=== PATIENT | male | born 1965 | race Caucasian/White ===

== ENCOUNTER 2016-09-17 15:15 | Emergency (ER) | payer MEDICAID, MEDICARE, OTHER ==
[~2016-09-17] VITALS: Ht 185.4 cm; Wt 70.0 kg
[~2016-09-17 15:15] MED LIST: CLOP75 PO; ISOS30TA; LANTUS INSULIN; LISI-618 PO; LITH8SOL; NOVE; QUET200T PO; SIMV5TAB6
[2016-09-17] MEDS ORDERED: ASPIRIN 81 MG CHEWABLE TABLET PO ONE (15:30)
[2016-09-17] MEDS ORDERED: NITROGLYCERIN 0.4 MG SUBLINGUAL TABLET #25 SL ONE (15:45)
[2016-09-17 16:07] LABS: BASOPHILS % (AUTO) 0.1 % (0.0-2.0); EOSINOPHILS % (AUTO) 2.9 % (1.0-6.0); LYMPHOCYTES # (AUTO) 1.5 K/uL (1.0-4.8); LYMPHOCYTES % (AUTO) 17.6 % (22.0-44.0); MEAN CORPUSCULAR HEMOGLOBIN 29.7 pg (26.0-34.0); MEAN CORPUSCULAR HGB CONC 33.3 G/dL (31.0-37.0); MEAN CORPUSCULAR VOLUME 89 fL (80-100); MONOCYTES # (AUTO) 0.3 K/uL (0.1-1.0); MONOCYTES % (AUTO) 4.1 % (2.0-9.0); NEUTROPHILS # (AUTO) 6.2 K/uL (1.8-7.7); NEUTROPHILS % (AUTO) 75.3 % (40.0-70.0); PLATELET COUNT (AUTO) 183 K/uL (150-450); RED BLOOD CELL COUNT(AUTO) 4.04 MIL/uL (4.50-5.90); RED CELL DISTRIBUTION WIDTH 14.4 % (11.5-14.5); WHITE BLOOD COUNT (AUTO) 8.3 K/uL (4.5-11.0)
[2016-09-17] MEDS ORDERED: HEPARIN SODIUM 25000 UNITS/D5W 250 ML IV PRN (16:13)
[2016-09-17] MEDS ORDERED: HEPARIN SODIUM,PORCINE 5,000 UNITS/ML VIAL IVP ONE (16:15)
[2016-09-17] MEDS ORDERED: MORPHINE SULFATE 4 MG/ML SYRINGE IVP ONE (16:15)
[2016-09-17] MEDS ORDERED: HEPARIN SODIUM,PORCINE 5,000 UNITS/ML VIAL IVP PRN ×2 (16:15)
[2016-09-17] MEDS ORDERED: ONDANSETRON HCL 4 MG/2 ML VIAL IVP ONE (16:15)
[2016-09-17] MEDS ORDERED: NITROGLYCERIN 2% (1 GM=INCH) PACKET TP ONE (16:15)
[2016-09-17 16:18] LABS: ANION GAP 7 mmol/L (8-16); CALCIUM, TOTAL 8.5 mg/dL (8.8-10.5); CARBON DIOXIDE 27 mmol/L (22-29); CHLORIDE 100 mmol/L (98-107); CREATININE 1.08 mg/dL (0.60-1.30); GLOMERULAR FILTR. RATE CALC > 60 mL/min (>60); SODIUM SERUM 134 mmol/L (136-145); UREA NITROGEN, BLOOD 21 mg/dL (7-18)
[2016-09-17 16:24] LABS: ALANINE AMINOTRANSFERASE 67 U/L (12-78); ASPARTATE AMINOTRANSFERASE 37 U/L (15-37); BILIRUBIN,TOTAL 0.2 mg/dL (0.1-1.0); CREATINE KINASE, TOTAL 330 U/L (39-308); TOTAL PROTEIN, SERUM 6.4 g/dL (6.4-8.2)
[2016-09-17 16:30] LABS: PROTHROMBIN TIME 10.1 SEC (9.4-11.6)
[2016-09-17 16:39] LABS: B-TYPE NATRIURETIC PEPTIDE 270 pg/mL (0-100)
[2016-09-17 16:41] VITALS: BP 157/99
[2016-09-17 17:13] LABS: LITHIUM < 0.20 mmol/L (0.60-1.20)
[2016-09-17 17:37] LABS: CREATINE KINASE MB 10.2 ng/mL (0-5)
== END 2016-09-17 17:16 | disposition short-term general hospital (02) ==
LOC: EMS 15:16
DX: R07.9 Chest pain, unspecified (principal); I10 Essential (primary) hypertension; E11.9 Type 2 diabetes mellitus without complications; J45.909 Unspecified asthma, uncomplicated; I25.10 Atherosclerotic heart disease of native coronary artery without angina pectoris; F12.90 Cannabis use, unspecified, uncomplicated; F17.210 Nicotine dependence, cigarettes, uncomplicated; Z88.0 Allergy status to penicillin; Z88.6 Allergy status to analgesic agent; Z88.8 Allergy status to other drugs, medicaments and biological substances; Z79.4 Long term (current) use of insulin
CPT/HCPCS: 71010; 80053; 80178; 82550; 82553; 83880; 84484; 85025; 85610; 85730; 93005; 96374; 96375; 99291; J1644 ×2; J2270; J2405